=== PATIENT | female | born 1950 | race Caucasian/White ===

== ENCOUNTER 2017-03-04 07:37 | Outpatient (CLI) | payer MEDICARE, OTHER ==
[~2017-03-04] VITALS: Ht 170.2 cm; Wt 73.6 kg
[2017-03-04] MEDS ORDERED: COUMADIN1 MG PO ×2 (08:15→08:17)
[2017-03-04] MEDS ORDERED: CARDIZEM60 MG PO (08:19)
[2017-03-04] MEDS ORDERED: BETAPACE 80 MG80 MG PO (08:20)
[2017-03-04] MEDS ORDERED: K-DUR20 MEQ PO (08:21)
[2017-03-04 08:27] VITALS: BP 113/86; Ht 170.2 cm; Wt 73.6 kg
[2017-03-04 09:06] LABS: BASOPHILS 0.1 % (0-2); EOSINOPHILS 4.7 % (0-7); HEMATOCRIT 32.1 % (36.0-48.0); HEMOGLOBIN 10.7 g/dL (12-16); IMMATURE GRANULOCYTES 0.2 % (0-5); LYMPHOCYTES 19.1 % (15-50); MCH 31.8 pg (26.0-34.0); MCHC 33.3 g/dL (31.0-37.0); MCV 95.3 fL (80.0-100.0); MEAN PLATELET VOLUME 10.2 fL (7.4-10.4); MONOCYTES 7.9 % (2-11); PLATELET COUNT 289 10x3/uL (130-400); RBC 3.37 10x6/uL (4.00-5.40); RDW 13.4 % (11.5-14.5)
[2017-03-04 09:14] LABS: INR 2.88 (0.85-1.17); PROTIME 30.4 SECONDS (11.6-15.0)
[2017-03-04 09:17] LABS: ANION GAP 11.7 mmol/L (8-16); CARBON DIOXIDE 28.7 mmol/L (21.0-32.0); CREATININE - SERUM 1.7 mg/dL (0.6-1.3); POTASSIUM - SERUM 4.4 mmol/L (3.5-5.1)
[2017-03-04 10:05] LABS: APTT 54.4 SECONDS (22.8-39.4)
== END 2017-03-04 12:50 | disposition home or self-care (01) ==
LOC: D.OPS 07:37 → D.SP 10:00 → D.OPS 10:00
PROVIDERS: General Practice
DX: I83.893 Varicose veins of bilateral lower extremities with other complications (principal); I83.813 Varicose veins of bilateral lower extremities with pain; Z01.810 Encounter for preprocedural cardiovascular examination; Z01.811 Encounter for preprocedural respiratory examination; Z01.812 Encounter for preprocedural laboratory examination; Z53.9 Procedure and treatment not carried out, unspecified reason

== ENCOUNTER → 2017-03-18 05:48 | Outpatient (CLI) | payer MEDICARE, OTHER ==
[~2017-03-18] VITALS: Ht 170.2 cm; Wt 71.8 kg
--- NOTE | ~2017-03-18 | HEMODYNAMI ---
PATIENT:STANTON LANDIN MEDICAL RECORD: [id number] : 52 LOCATION:[facility] ADMISSION DATE: 03/18/17 Generatedon:03/18/201710:00 Patient name: STANTON LANDIN Patient #: [id number] SSN: DO B: 1950 Date of study: 03/18/2017 Page: Of Hemodynamic Procedure Report Patient Data Patient Demographics Procedure consent was obtained First Name: STANTON Gender: Female Last Name: URVASHI : 1950 [facility] Initial: L Age: 66 year(s) Patient #: [id number] Race: Unknown Additional ID: [id number] Contact details Address: [address] [place] [address] State: [place] City: [place] Zip code: [address] Admission Admission Data Admission Date: 03/18/2017 Admission Time: 5:48 Procedure Procedure Types Cath Procedure Peripheral Cath Diagnostic Procedure Miscellaneous Procedure Description Procedure Date Procedure Date: 03/18/2017 Procedure Start Time: 9:15 Procedure Staff Name Function Guillermo Arredondo MD Performing Physician Elbert De La Paz RT Scrub Britni Angelo RN Nurse Elbert De La Paz RT Monitor Procedure Data Cath Procedure Fluoroscopy Diagnostic fluoroscopy Total fluoroscopy Time: 1.5 time: 1.5 min min Diagnostic fluoroscopy Total fluoroscopy dose: 206 dose: 206 mGy mGy Contrast Material Contrast Material Type Amount (ml) Isovue 300 72 Entry Location Entry Primary Successful Side Size Upsize Upsize Entry Closure Stern ccessful Closure Location (Fr) 1 (Fr) 2 (Fr) Remarks Device Remarks Femoral Right 5 Fr Manual vein Compression Femoral Left 5 Fr Manual vein Compression Diagnostic catheters Device Type Used For End Catheter Placement Merit ULTRA BOLUS FLUSH 5Fr 65CM catheter Procedure Medications Medication Administration Route Dosage Fentanyl I.V. 50 mcg Versed I.V. 1 mg Versed I.V. 1 mg Fentanyl I.V. 50 mcg Oxygen NC 3 l/min Hemodynamics Rest Heart Rate: 65 (bpm) Pre Cath Intra NCS Post Cath Vital Signs Time Heart Resp SPO2 NIBP (mmHg) Rhythm Pain Sedation Rate (ipm) (%) Status Level (bpm) 8:25:03 66 14 98 141/88(126) NSR 0 (11) 10(A) , No pain 8:29:17 65 13 96 141/90(130) NSR 0 (11) 10(A) , No pain 8:33:33 61 13 96 145/84(121) NSR 0 (11) 10(A) , No pain 8:37:39 70 16 99 146/97(128) NSR 0 (11) 10(A) , No pain 8:41:57 66 13 99 161/83(122) NSR 0 (11) 10(A) , No pain 9:01:39 73 14 98 144/80(126) NSR 0 (11) 10(A) , No pain 9:05:55 71 15 100 152/89(121) NSR 0 (11) 10(A) , No pain 9:10:07 65 15 100 142/90(114) NSR 0 (11) 10(A) , No pain 9:15:10 67 13 98 155/97(133) NSR 0 (11) 10(A) , No pain 9:19:30 72 14 100 164/90(130) NSR 0 (11) 10(A) , No pain 9:23:46 64 16 99 125/77(109) NSR 0 (11) 10(A) , No pain 9:27:56 71 13 100 126/84(101) NSR 0 (11) 10(A) , No pain 9:32:08 63 13 100 125/80(97) NSR 0 (11) 10(A) , No pain 9:36:24 67 10 99 118/69(96) NSR 0 (11) 10(A) , No pain 9:40:34 64 13 100 122/73(108) NSR 0 (11) 10(A) , No pain 9:44:48 61 14 100 128/71(97) NSR 0 (11) 10(A) , No pain 9:49:00 66 13 99 130/80(113) NSR 0 (11) 10(A) , No pain 9:53:10 63 13 100 142/87(106) NSR 0 (11) 10(A) , No pain 9:57:12 72 13 98 114/103(113) NSR 0 (11) 10(A) , No pain Medications Time Medication Route Dose Verified Delivered Reason Notes Effectivenes s by by 8:20:54 Oxygen NC 3 Britni Britni for low l/min Petey Petey 02 sats RN RN 9:15:23 Fentanyl I.V. 50 Britni Britni for mcg Petey Petey sedation RN RN 9:15:27 Versed I.V. 1 mg Britni Britni for Petey Petey sedation RN RN 9:20:10 Fentanyl I.V. 50 Britni Britni for mcg Petey Petey sedation RN RN 9:20:35 Versed I.V. 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 Start room use. 8:01:34 Time tracking: Regular hours 8:01:39 Plan of Care:Hemodynamics will remain stable., Cardiac rhythm will remain stable., Comfort level will be maintained., Respiratory function will remain adequate., Patient/ family verbilizes understanding of procedure., Procedure tolerated without complication., Recovers from procedure without complications.. 8:01:50 Patient received from Outpatients to IR Alert and oriented. Tansferred to table in Supine position. 8:01:51 Correct patient and procedure confirmed by team. 8:01:53 Signed procedure consent form obtained from patient. 8:01:55 ECG and BP/O2 sat monitors applied to patient. 8:01:56 Full Disclosure recording started 8:01:56 - 8:01:59 H&P Date Dictated: 03/18/2017 H&P Addendum completed by physician on day of procedure. (MUST COMPLETE FOR ALL OUTPATIENTS). 8:02:00 Pre-procedure instructions explained to patient. 8:02:01 Pre-op teaching completed and patient verbalized understanding. 8:02:02 Family in waiting room. 8:02:04 Patient NPO since Midnight. 8:02:07 Is the patient allergic to Iodine/contrast media? No. 8:02:09 Is patient on blood thinner?Yes 8:02:13 Patient diabetic? No. 8:02:15 - 8:02:15 ----Pre-sedation anethsthesia assessment.---- 8:02:18 Previous problem with sedation/anesthesia? No ? 8:02:20 Snore? Yes 8:02:21 Sleep apnea? No 8:02:22 Deviated septum? No 8:02:24 Opens mouth fully? Yes 8:02:38 Sticks out tongue? Yes 8:02:41 Airway obstruction? No ? 8:02:43 Dentures? No ? 8:02:54 Use device set IR Diagnostic 8:02:56 Bag Decanter opened to sterile field. 8:02:56 Sterile Angiographic Pack opened to sterile field. 8:14:59 [place] DOC .035 guide wire opened to sterile field. 8:15:19 Terumo 5Fr [place] Sheath opened to sterile field. 8:17:18 Patient pain scale 0/10 no pain. 8:17:44 IV patent on arrival in port with 0.9% NaCl at KVO. 8:17:45 Sharps counted by scrub and verified by R.N. 8:17:46 Alarms reviewed by R. N. 8:17:50 Bilateral groins area was prepped with chlora-prep and draped in steril e fashion 8:20:54 Oxygen 3 l/min NC was administered by Britni Angelo RN; for low 02 sats; 9:03:57 Popliteal region area was prepped with chlora-prep and draped in steril e fashion 9:06:40 Physician arrived 9:06:40 --------ALL STOP TIME OUT------ 9:06:41 Final Timeout: patient, procedure, and site verified with staff and physician. All members of the team are in agreement. 9:06:46 Popliteal region site verified by team. 9:06:51 Physical assessment completed. ASA score P 3 - A patient with severe systemic disease as per Guillermo Arredondo MD. 9:06:55 Sedation plan: IV Moderate Sedation Versed, Fentanyl 9:15:17 Procedure started. 9:15:22 Local anesthetic to right femoral vein with Lidocaine 1% by Guillermo Arredondo MD.INITIAL ACCESS ONLY 9:15:23 Fentanyl 50 mcg I.V. was administered by Britni Angelo RN; for sedation; 9:15:27 Versed 1 mg I.V. was administered by Britni Angelo RN; for sedation; 9:15:34 Local anesthetic to left femoral vein with Lidocaine 1% by Guillermo Arredondo MD.ADDITIONAL ACCESS 9:15:44 A 5 Fr sheath was inserted into the Right Femoral vein 9:15:54 A 5 Fr sheath was inserted into the Left Femoral vein 9:15:59 Micropuncture VSI 4FR kit opened to sterile field. 9:15:59 Terumo 5Fr [place] Sheath opened to sterile field. 9:16:38 A Unbabel ULTRA BOLUS FLUSH 5Fr 65CM catheter was advanced over the wire and used for . 9:16:48 Terumo 5Fr [place] Sheath opened to sterile field. 9:20:10 Fentanyl 50 mcg I.V. was administered by Britni Angelo RN; for sedation; 9:20:35 Versed 1 mg I.V. was administered by Britni Angelo RN; for sedation; 9:41:20 Procedure ended.(Physican Out) 9:41:38 Fluoroscopy time 01.50 minutes. 9:41:45 Fluoroscopy dose: 206 mGy 9:41:45 Flurop Dose total: 206 9:43:46 Contrast amount:Isovue 300 72ml. 9:43:48 Sharps counted by scrub and verified by R.N. 9:44:05 Sheath removed intact; hemostasis achieved with Manual Compression to the Left Femoral vein. 9:44:12 Sheath removed intact; hemostasis achieved with Manual Compression to the Right Femoral vein. 9:44:15 Insertion/operative site no bleeding no hematoma. 9:44:21 Post-op/insertion site Right Femoral vein dressed using a 4 x 4 and Tegaderm. 9:44:25 Post-op/insertion site Left Femoral vein dressed using a 4 x 4 and Tegaderm. 9:44:29 Post left femoral vein:stable 9:44:33 Post right femoral vein:stable 9:44:38 Post-procedure physical assessment completed. ASA score P 3 - A patient with severe systemic disease as per Guillermo Arredondo MD. 9:44:41 Post procedure rhythm: unchanged. 9:44:45 Post procedure instruction explained to patient.Patient verbalizes understanding. 9:57:50 Procedure and supply charges have been captured, reviewed, submitted an d are correct. 9:58:01 Report given to Outpatients. 9:58:05 Patient transfered to Outpatients with Stretcher. 10:00:56 Vital chart was stopped Device Usage Item Name Manufacture Quantity Catalog Number Hospital Part Current Min imal Lot# / Charge Number Stock Stock Serial# Code Bag Decanter Microtek 1 [id number] 5 [employer] Sterile Cardinal 1 [id number] 5 Angiographic Health Pack Cook DOC .035 Cook Medical 1 [id number] [id number] 5 guide wire Terumo 5Fr Terumo 3 [id number] [id number] 40 [place] Sheath Micropuncture VSI VASCULAR 1 [id number] 5 VSI 4FR kit SOLUTIONS Merit ULTRA Merit 1 [id number] 5 BOLUS FLUSH Medical 5Fr 65CM catheter Signature Audit [place] Stage Time Signature Unsigned Intra-Procedure 03/18/2017 Elbert 10:00:53 AM Brain RT (R) (CV) Signatures Monitor : Elbert Signature : Brain RT Date : Time : [address] [id number]
[~2017-03-18 05:48] MED LIST: BETAPACE 80 MG80 MG PO; CARDIZEM60 MG PO; COUMADIN1 MG PO; K-DUR20 MEQ PO
[2017-03-18 06:44] LABS: BASOPHILS 0.1 % (0-2); EOSINOPHILS 4.8 % (0-7); HEMATOCRIT 33.8 % (36.0-48.0); HEMOGLOBIN 11.1 g/dL (12-16); IMMATURE GRANULOCYTES 0.4 % (0-5); LYMPHOCYTES 18.5 % (15-50); MCH 31.4 pg (26.0-34.0); MCHC 32.8 g/dL (31.0-37.0); MCV 95.5 fL (80.0-100.0); MEAN PLATELET VOLUME 10.3 fL (7.4-10.4); MONOCYTES 8.2 % (2-11); PLATELET COUNT 268 10x3/uL (130-400); RBC 3.54 10x6/uL (4.00-5.40); RDW 13.4 % (11.5-14.5); WBC 7.1 10x3/uL (4.8-10.8)
[2017-03-18 06:51] LABS: ANION GAP 7.5 mmol/L (8-16); CALCIUM 10.7 mg/dL (8.5-10.1); CARBON DIOXIDE 33.2 mmol/L (21.0-32.0); CREATININE - SERUM 1.7 mg/dL (0.6-1.3); POTASSIUM - SERUM 4.7 mmol/L (3.5-5.1)
[2017-03-18 06:57] VITALS: BP 120/72; Ht 170.2 cm; Wt 71.8 kg
[2017-03-18 07:17] LABS: INR 1.54 (0.85-1.17); PROTIME 18.4 SECONDS (11.6-15.0)
[2017-03-18 07:18] LABS: APTT 41.1 SECONDS (22.8-39.4)
--- NOTE | 2017-03-18 11:27 | NUR ---
1010 FREQUENT VITALS ON POST PROCEDURE SHEET IN CHART.
--- NOTE | 2017-03-18 13:57 | NUR ---
1330 DISCHARGE INSTRUCTIONS COMPLETE. NO PRESCRIPTIONS GIVEN. PT HAS NO QUESTIONS OR CONCERNS. PT ESCORTED OUT BY VOLUNTEER.
== END | disposition home or self-care (01) ==
LOC: D.OPS 05:48 → D.SP 08:00 → D.OPS 08:00
PROVIDERS: General Practice
DX: I87.2 Venous insufficiency (chronic) (peripheral) (principal); R22.43 Localized swelling, mass and lump, lower limb, bilateral; Z01.812 Encounter for preprocedural laboratory examination

== ENCOUNTER → 2017-03-19 09:20 | Outpatient (CLI) | payer MEDICARE, OTHER ==
[2017-03-18 06:57] VITALS: BMI 24.8
[2017-03-19 10:16] LABS: ALBUMIN 3.5 g/dL (3.4-5.0); ANION GAP 5.8 mmol/L (8-16); BILIRUBIN - TOTAL 0.58 mg/dL (0.2-1.3); CALCIUM 10.4 mg/dL (8.5-10.1); CARBON DIOXIDE 33.6 mmol/L (21.0-32.0); CREATININE - SERUM 1.7 mg/dL (0.6-1.3); POTASSIUM - SERUM 4.4 mmol/L (3.5-5.1); PROTEIN - SERUM 7.6 g/dL (6.4-8.2)
== END | disposition home or self-care (01) ==
LOC: D.LAB 08:00
PROVIDERS: Radiology Diagnostic Radiology
DX: N17.9 Acute kidney failure, unspecified (principal)